=== PATIENT | female | born 1960 | race Caucasian/White ===

== ENCOUNTER 2023-06-04 14:17 | Emergency (ER) | payer OTHER ==
[2023-06-04] MEDS ORDERED: Ondansetron 4 MG/2 ML SDV ONE (14:45)
[2023-06-04] MEDS ORDERED: Sodium Chloride 0.9% 10 ML Syringe FLUSH PRN (14:59)
[2023-06-04] MEDS ORDERED: Ondansetron 4 MG/2 ML SDV IVPUSH SCH (15:00)
[2023-06-04] MEDS ORDERED: Ondansetron 4 MG Tab.DIS PO ONE (15:30)
[2023-06-04 15:39] LABS: BASOPHILS ABSOLUTE AUTO 0.11 K/uL (0.02-0.10); BASOPHILS PERCENT AUTO 1.1 % (0.0-0.5); EOSINOPHILS ABSOLUTE AUTO 0.16 K/uL (0.04-0.40); EOSINOPHILS PERCENT AUTO 1.6 % (1.0-5.0); HEMOGLOBIN 14.8 g/dL (11.5-16.5); LYMPHOCYTES ABSOLUTE AUTO 1.78 K/uL (1.50-4.00); LYMPHOCYTES PERCENT AUTO 18.2 % (20.0-40.0); MEAN CORPUSCULAR HEMOGLOBIN 29.2 pg (27.0-32.0); MEAN CORPUSCULAR HGB CONC 34.4 g/dL (31.0-35.0); MEAN CORPUSCULAR VOLUME 85 fL (76-96); MEAN PLATELET VOLUME 8.5 fL (6.0-10.0); MONOCYTES PERCENT AUTO 10.2 % (3.0-10.0); NEUTROPHILS ABSOLUTE AUTO 6.74 K/uL (2.00-7.50); NEUTROPHILS PERCENT AUTO 68.9 % (45.0-70.0); PLATELET COUNT,PLT 416 K/uL (150-500); RED BLOOD CELL COUNT 5.06 M/uL (3.80-5.80); RED CELL DISTRIBUTION WIDTH 13.6 % (11.0-16.0); WHITE BLOOD CELL COUNT,WBC 9.8 K/uL (4.0-11.0)
[2023-06-04] MEDS ORDERED: Ondansetron 4 MG Tab.DIS ONE ×2 (15:39→21:45)
[2023-06-04 16:00] LABS: A/G RATIO 0.9 (0.8-2.0); ALBUMIN 3.9 g/dL (3.4-5.0); ANION GAP 13.8 mmol/L (5.0-15.0); BILIRUBIN TOTAL 0.7 mg/dL (0.0-1.0); BUN/CREATININE RATIO 15.7 (6-25); CALCIUM 9.9 mg/dL (8.5-10.1); CREATININE 0.83 mg/dL (0.55-1.02); EST CRCL DRUG DOSING (CG) 53.03 mL/min; PROTEIN TOTAL,TP 8.1 g/dL (6.4-8.2)
[2023-06-04 16:01] LABS: POTASSIUM,K 2.8 mmol/L (3.5-5.1)
[2023-06-04] MEDS ORDERED: NS with KCl 40mEq 1,000 ML IV SCH (16:15)
== END 2023-06-04 21:55 | disposition home or self-care (01) ==
LOC: LB.ED 14:17
DX: R19.7 Diarrhea, unspecified (principal); E87.6 Hypokalemia; Z88.1 Allergy status to other antibiotic agents; Z79.899 Other long term (current) drug therapy
CPT/HCPCS: 36415; 80053; 84132; 85025; 96365; 96366; 99284-25; J3480; Q0162

== ENCOUNTER 2024-01-16 07:45 | Day surgery (SDC) | payer OTHER ==
[~2024-01-16 07:45] MED LIST: Metoclopramide 10 MG/2 ML SDV IV PRN
[2024-01-16] MEDS: Sodium Chloride 0.9% 1,000 ML IV SCH (08:08)
[2024-01-16] MEDS ORDERED: Propofol 1,000 MG/100 ML SDV ONE (09:30)
== END 2024-01-16 10:45 | disposition home or self-care (01) ==
LOC: LB.SDS 07:45
PROVIDERS: ATTEND Surgery
DX: K31.9 Disease of stomach and duodenum, unspecified (principal); R13.10 Dysphagia, unspecified; K57.30 Diverticulosis of large intestine without perforation or abscess without bleeding; I10 Essential (primary) hypertension; Z88.8 Allergy status to other drugs, medicaments and biological substances
CPT/HCPCS: 88305; J2704; J7030